=== PATIENT | male | born 1930 | race Caucasian/White ===

== ENCOUNTER → 2017-01-20 | Outpatient (CLI) | payer MEDICARE, BC ==
[2017-01-20 15:16] LABS: Blood Urea Nitrogen 40 mg/dL (9-20); Non-African American GFR(MDRD) >60 (>60 ml/min/1.73 sqM)
--- NOTE | 2017-01-20 16:52 | CT ---
EXAMINATION TYPE: CT urogram wo/w con DATE OF EXAM: 01/20/2017 4:42 PM COMPARISON: Renal ultrasound March 13, 2016. HISTORY: Pt states of hematuria x10 days ago. CT DLP: 2730 mGycm, Automated Exposure Control for Dose Reduction was Utilized. CONTRAST: CT scan of the abdomen and pelvis is performed without oral and without and with IV Contrast, patient injected with 100 mL of Omnipaque 300. Urogram protocol with Three-D reconstructed images created on independent workstation and reviewed. FINDINGS: KUB: Noncontrast images show no renal calculi bilaterally. Postcontrast images show symmetric cortica l medullary uptake and excretion from both kidneys without evidence of hydronephrosis bilaterally. Th ere is exophytic simple appearing 5.1 x 4.5 cm cyst laterally mid to lower pole level right kidney. T here is 1.4 cm simple appearing cyst upper pole level right kidney. There are additional scattered abbott bcentimeter low dense lesions throughout the right kidney too small to further characterize but felt to reflect simple cysts. No worrisome solid or cystic renal mass is evident bilaterally. There is sli ghtly asymmetric left-sided mild hydroureter without obstructing mass or neoplasm identified. No susp icious intraluminal mass in the bladder is present. LUNG BASES: Dependent atelectasis is present. Mild underlying emphysematous change is seen. Coronary artery calcification is noted. LIVER/GB: Gallbladder is contracted in appearance and thus limited in evaluation PANCREAS: No significant abnormality is seen. SPLEEN: No significant abnormality is seen. ADRENALS: No significant abnormality is seen. KIDNEYS: No significant abnormality is seen. BOWEL: Diffuse colonic diverticulosis is seen. PROSTATE/SEMINAL VESICLES: Prostate gland is heterogeneous appearance of markedly enlarged in size co nsistent with BPH, clinical correlation advised to confirm. LYMPH NODES: No greater than 1cm abdominal or pelvic lymph nodes are appreciated. OSSEOUS STRUCTURES: No significant abnormality is seen. OTHER: There are small sized fat-containing umbilical hernia. There is small sized fat-containing lef t inguinal hernia. There is atherosclerotic and ectatic abdominal aorta extending into pelvic branch vessels. Aorta is m ildly aneurysmal up to 3.2 cm in diameter on axial image 44. IMPRESSION: 1. No suspicious finding is seen to account for patient's symptoms of hematuria. Simple appearing cys ts and right kidney are redemonstrated. 2. Markedly enlarged prostate gland consistent with BPH, clinical correlation advised. 3. Prominent diffuse colonic diverticulosis without convincing CT evidence for acute diverticulitis. 4. Ectasia abdominal aorta with 3.2 cm focal aneurysm seen at infrarenal level.
== END | disposition home or self-care (01) ==
LOC: RADCTMAIN 14:40
PROVIDERS: ATTEND Internal Medicine
DX: N28.1 Cyst of kidney, acquired (principal); N40.0 Benign prostatic hyperplasia without lower urinary tract symptoms; K57.30 Diverticulosis of large intestine without perforation or abscess without bleeding; I77.811 Abdominal aortic ectasia; I72.2 Aneurysm of renal artery
CPT/HCPCS: 82565; 84520; 74178; 36415; 74400; Q9967

== ENCOUNTER → 2017-02-19 | Outpatient (CLI) | payer MEDICARE, BC ==
--- NOTE | 2017-02-19 12:25 | US ---
EXAMINATION TYPE: US duplex aorta DATE OF EXAM: 02/19/2017 10:21 AM COMPARISON: Correlation CT 01/20/2017 CLINICAL HISTORY: 86-year-old male abdominal aortic aneurysm w/o rupture I71.4. TECHNIQUE: Multiple sonographic images of the abdominal aorta were obtained. FINDINGS: EXAM MEASUREMENTS: Abdominal Aorta: Proximal: obscured by overlying bowel gas Mid: 2.4 cm. Junction of the mid and distal abdominal aorta demonstrates a 2.7 cm long segment of fusiform aneur ysm measuring up to 3.1 x 3.2 cm. Distal: 2.1cm Common iliac arteries: obscured by overlying bowel gas unable to visualize bifurcation IMPRESSION: 1. The proximal abdominal aorta, aortic bifurcation, and common iliac arteries are obscured and not e valuated. 2. However, there is a 2.7 cm long AAA at the junction of the mid and distal abdominal aorta with a c aliber of 3.2 cm.
== END | disposition home or self-care (01) ==
LOC: RADUSWWP 10:06
PROVIDERS: ATTEND Internal Medicine
DX: I71.4 Abdominal aortic aneurysm, without rupture (principal); Z13.6 Encounter for screening for cardiovascular disorders
CPT/HCPCS: 93979

== ENCOUNTER → 2017-02-25 | Outpatient (CLI) | payer MEDICARE, BC ==
--- NOTE | 2017-02-25 17:42 | US ---
EXAMINATION TYPE: US venous doppler duplex LE RT DATE OF EXAM: 02/25/2017 5:24 PM COMPARISON: 10/13/2013 CLINICAL HISTORY: RLE Thrombophlebitis I80.9. SIDE PERFORMED: Right TECHNIQUE: The lower extremity deep venous system is examined utilizing real time linear array sonog horacio with graded compression, doppler sonography and color-flow sonography. VESSELS IMAGED: External Iliac Vein (EIV) Common Femoral Vein Deep Femoral Vein Greater Saphenous Vein * Femoral Vein Popliteal Vein Proximal Calf Veins (* superficial vessels) scanned area of concern, right calf over lump, there is thrombus seen in superficial vessel, branch o f GSV. Right Leg: Negative for DVT There is a superficial vein in the calf with evidence of superficial venous thrombus. IMPRESSION: Grayscale, color doppler, spectral doppler imaging performed of the deep veins of the lo wer extremities. There is normal flow, compressibility, vascular waveforms bilaterally. No evidence of deep venous thrombosis.
== END | disposition home or self-care (01) ==
LOC: RADUSWWP 16:33
PROVIDERS: ATTEND Internal Medicine
DX: I80.9 Phlebitis and thrombophlebitis of unspecified site (principal)

== ENCOUNTER → 2017-03-04 | Outpatient (CLI) | payer MEDICARE, BC ==
--- NOTE | 2017-03-04 14:57 | XR ---
EXAMINATION TYPE: XR chest 2V DATE OF EXAM: 03/04/2017 2:43 PM COMPARISON: NONE INDICATION: Short of breath for 5 days TECHNIQUE: 2 view chest FINDINGS: The heart size is normal. The pulmonary vasculature is normal. There is hyperinflation flattening the diaphragms compatible COPD. Some plate atelectasis at the left base. There is mild blunting the right costophrenic angle. IMPRESSION: 1. Plate atelectasis left base. 2. COPD
== END | disposition home or self-care (01) ==
LOC: RADXRMAIN 14:16
PROVIDERS: ATTEND Internal Medicine
DX: J98.11 Atelectasis (principal); J44.9 Chronic obstructive pulmonary disease, unspecified
CPT/HCPCS: 71020

== ENCOUNTER → 2018-03-11 | Outpatient (CLI) | payer MEDICARE, BC ==
[2018-03-11 10:15] LABS: Basophils % (A) 1 %; Eosinophils # (A) 0.2 k/uL (0-0.7); Eosinophils % (A) 4 %; HCT 40.5 % (39.0-53.0); HGB 13.4 gm/dL (13.0-17.5); Lymphocytes # (A) 0.9 k/uL (1.0-4.8); Lymphocytes % (A) 23 %; MCH 31.6 pg (25.0-35.0); MCHC 33.1 g/dL (31.0-37.0); MCV 95.3 fL (80.0-100.0); Mean Platelet Volume 6.6; Monocytes # (A) 0.5 k/uL (0-1.0); Monocytes % (A) 13 %; Neutrophils # (A) 2.2 k/uL (1.3-7.7); Neutrophils % (A) 55 %; Platelet Count 213 k/uL (150-450); RBC 4.25 m/uL (4.30-5.90); RDW 13.9 % (11.5-15.5); WBC 3.9 k/uL (3.8-10.6)
[2018-03-11 10:32] LABS: Appearance,Urine Clear (Clear); Bilirubin,Urine Negative (Negative); Blood,Urine Small (Negative); Color,Urine Yellow; Glucose,Urine (UA) Negative (Negative); Ketones,Urine Negative (Negative); Leukocyte Esterase,Urine Trace (Negative); Mucus,Urine Rare /hpf; Nitrite,Urine Negative (Negative); Protein,Urine Trace (Negative); RBC,Urine 5 /hpf (0-5); Specific Gravity,Urine 1.015 (1.001-1.035); Urobilinogen,Urine <2.0 mg/dL (<2.0); WBC,Urine 4 /hpf (0-5)
--- NOTE | 2018-03-11 10:32 | XR ---
EXAMINATION TYPE: XR cervical spine comp DATE OF EXAM: 03/11/2018 CLINICAL HISTORY: pain COMPARISON: NONE TECHNIQUE: Frontal, lateral, oblique, swimmers, and open mouth view of the cervical spine are obtaine d. FINDINGS: The cervical spine is visualized in its entirety from C1 thru the top of T1 level. It is s atisfactory in alignment without evidence of acute fracture or dislocation. The pre-vertebral soft t issue appears within normal limits. Moderate multilevel degenerative disc space narrowing and spondyl osis. Degenerative changes of the cervical apophyseal joints moderate to severe in degree. There is f oraminal encroachment bilaterally at C3-4 through C5-6. The C1-C2 articulation is unremarkable on the open mouth view. IMPRESSION: No acute fracture or dislocation is seen in the cervical spine. Degenerative changes as noted. ICD 10 NO FRACTURE, INITIAL EVALUATION
[2018-03-11 10:56] LABS: Albumin 3.9 g/dL (3.5-5.0); Calcium 9.5 mg/dL (8.4-10.2); Magnesium 1.7 mg/dL (1.6-2.3); Phosphorus 3.8 mg/dL (2.5-4.5); Potassium 4.1 mmol/L (3.5-5.1); Total Bilirubin 0.4 mg/dL (0.2-1.3); Total Protein 6.6 g/dL (6.3-8.2); Uric Acid 6.7 mg/dL (3.5-8.5)
[2018-03-11 11:04] LABS: T4, Free (Free Thyroxine) 1.22 ng/dL (0.78-2.19)
== END | disposition home or self-care (01) ==
LOC: LABWHC1 09:11
PROVIDERS: ATTEND Internal Medicine
DX: E78.5 Hyperlipidemia, unspecified (principal); M81.0 Age-related osteoporosis without current pathological fracture; N18.1 Chronic kidney disease, stage 1; J44.9 Chronic obstructive pulmonary disease, unspecified; M47.892 Other spondylosis, cervical region
CPT/HCPCS: 36415; 72050; 80053; 80061; 81001; 82550; 83735; 84100; 84439; 84443; 84550; 85025

== ENCOUNTER → 2018-08-24 | Outpatient (CLI) | payer MEDICARE, BC ==
--- NOTE | 2018-08-24 10:40 | FL ---
ESOPHOGRAM. HISTORY: Dysphagia Esophagram was performed per the air contrast technique. The patient swallowed barium and effervesce nt crystals without difficulty or delay. Esophageal peristalsis and motility appear to be within normal limits. There is no evidence for filling defect, mass or diverticulum. There is a small sliding-type hiatal hernia. Subsequently single contrast cervical esophagram was performed which fails demonstrate evidence for a spiration penetration or mass. Mild prominence of the cricopharyngeus musculature. IMPRESSION: 1. There is a small sliding-type hiatal hernia. 2. Mild prominence of the cricopharyngeus musculature.
== END ==
LOC: RADFLWHC 09:22
PROVIDERS: ATTEND Internal Medicine
DX: K44.9 Diaphragmatic hernia without obstruction or gangrene (principal)
CPT/HCPCS: 74220

== ENCOUNTER → 2019-04-08 | Outpatient (CLI) | payer MEDICARE, BC ==
[~2019-04-08] MED LIST: REGADENOSON 0.4 MG/5 ML SYRINGE IV ONE
--- NOTE | 2019-04-08 10:53 | EST ---
EXERCISE STRESS DATE OF SERVICE: 04/08/2019 AGE: 88 SEX: Male HT: 5'5" WT: 165 pounds PROTOCOL: Lexiscan Cardiolite STAGE: DURATION OF EXERCISE: HEART RATE REST: 52 BLOOD PRESSURE REST: 134/83 MAXIMUM HEART RATE ACHIEVED: 85 MAXIMUM BLOOD PRESSURE: 139/79 85% MPHR: 100% MPHR: METS: INDICATIONS: CLINICAL INFORMATION: Baseline rhythm is sinus mechanism, rate of 52, normal axis and intervals, normal electrocardiogram. Baseline blood pressure 134/83 mmHg. Patient received injection of Lexiscan. Electrocardiograph monitoring revealed no evidence of diagnostic ischemic ST deviation. Cardiolite was injected per protocol. CONCLUSION: 1. Nondiagnostic electrocardiograph stress testing. 2. Nuclear images will be reported separately. MMODL / IJN: [id number] /
--- NOTE | 2019-04-08 12:09 | NM ---
EXAMINATION TYPE: NM stress lexiscan cardiolite DATE OF EXAM: 04/08/2019 COMPARISON: NONE HISTORY: 88-year-old male inferior transmural ME, ST elevation. TECHNIQUE: After the intravenous administration of 9.77 mCi Tc 99m Sestamibi - Cardiolite resting SP ECT images acquired 45 minutes post injection. The patient received 0.4mg Lexiscan, 24.7 mCi Tc 99m Sestamibi - Stress images obtained [address] injection FINDINGS: Review of stress and rest SPECT images demonstrates fixed decreased perfusion along the inferior and inferoseptal wall. Decreased perfusion at the cardiac apex is seen only on rest imaging suggesting at tenuation artifact. Gated analysis shows normal wall motion with an estimated left ventricular ejecti on fraction of 64 %. TID calculated at 1.05, within normal limits. IMPRESSION: 1. Large area of fixed perfusion abnormality along the inferior and inferoseptal wall. Findings could represent attenuation artifact or a large inferior wall infarct. 2. Decreased perfusion along the cardiac apex noted only on the rest imaging suggests attenuation art ifact. No suspicious reversibility seen. 3. Estimated LVEF of 64%.
== END | disposition home or self-care (01) ==
LOC: RADNMMAIN 08:02
PROVIDERS: ATTEND Internal Medicine
DX: R93.1 Abnormal findings on diagnostic imaging of heart and coronary circulation (principal); I21.19 ST elevation (STEMI) myocardial infarction involving other coronary artery of inferior wall
CPT/HCPCS: 93017; 78452; A9500; J2785

== ENCOUNTER → 2019-04-26 | Outpatient (CLI) | payer MEDICARE, BC ==
--- NOTE | 2019-04-27 09:54 | ECHOF ---
Referral Reason:I21.19 ST elevation (STEMI) myocardial infarction MEASUREMENTS -------- HEIGHT: 165.1 cm WEIGHT: 77.1 kg BP: 143/69 IVSd: 1.5 cm (0.6 - 1.1) LVIDd: 3.2 cm (3.9 - 5.3) LVPWd: 1.7 cm (0.6 - 1.1) IVSs: 1.7 cm LVIDs: 1.9 cm LVPWs: 1.9 cm LAESV Index (A-L): 28.65 ml/m Ao Diam: 2.9 cm (2.0 - 3.7) AV Cusp: 1.2 cm (1.5 - 2.6) LA Diam: 4.1 cm (2.7 - 3.8) MV EXCURSION: 14.382 mm (> 18.000) MV EF SLOPE: 25 mm/s (70 - 150) EPSS: 0.4 cm MV E Antonio: 0.66 m/s MV DecT: 263 ms MV A Antonio: 1.06 m/s MV E/A Ratio: 0.62 AR PHT: 725 ms RAP: 5.00 mmHg RVSP: 28.02 mmHg FINDINGS -------- Sinus rhythm. This was a technically adequate study. The left ventricular size is normal. There is moderate concentric left ventricular hypertrophy. T here is normal global left ventricular contractility. Overall left ventricular systolic function is normal with, an EF between 60 - 65 %. The right ventricle is normal in size. Normal LA size by volume 22+/-6 ml/m2. The right atrial size is normal. Interatrial and interventricular septum intact. Aortic valve is trileaflet and is mildly thickened. There is mild aortic valve sclerosis. There i s mild aortic regurgitation. There is no evidence of aortic stenosis. Moderate mitral annular calcification present. Mild mitral regurgitation is present. Mild tricuspid regurgitation present. There is no evidence of pulmonary hypertension. The right v entricular systolic pressure, as measured by Doppler, is 28.02mmHg. Trace/mild (physiologic) pulmonic regurgitation. The aortic root size is normal. Normal inferior vena cava with normal inspiratory collapse consistent with estimated right atrial pre ssure of 5 mmHg. There is no pericardial effusion. CONCLUSIONS -------- 1. Sinus rhythm. 2. This was a technically adequate study. 3. The left ventricular size is normal. 4. There is moderate concentric left ventricular hypertrophy. 5. There is normal global left ventricular contractility. 6. Overall left ventricular systolic function is normal with, an EF between 60 - 65 %. 7. The right ventricle is normal in size. 8. Normal LA size by volume 22+/-6 ml/m2. 9. The right atrial size is normal. 10. Interatrial and interventricular septum intact. 11. Aortic valve is trileaflet and is mildly thickened. 12. There is mild aortic valve sclerosis. 13. There is mild aortic regurgitation. 14. There is no evidence of aortic stenosis. 15. Moderate mitral annular calcification present. 16. Mild mitral regurgitation is present. 17. Mild tricuspid regurgitation present. 18. There is no evidence of pulmonary hypertension. 19. The right ventricular systolic pressure, as measured by Doppler, is 28.02mmHg. 20. Trace/mild (physiologic) pulmonic regurgitation. 21. The aortic root size is normal. 22. Normal inferior vena cava with normal inspiratory collapse consistent with estimated right atrial pressure of 5 mmHg. 23. There is no pericardial effusion. STAMP COLLECTOR: Shania Montoya RDCS
== END | disposition home or self-care (01) ==
LOC: RADECHMAIN 14:40
PROVIDERS: ATTEND Internal Medicine
DX: I08.3 Combined rheumatic disorders of mitral, aortic and tricuspid valves (principal)
CPT/HCPCS: 93306

== ENCOUNTER → 2019-12-03 | Outpatient (CLI) | payer MEDICARE, BC ==
--- NOTE | 2019-12-03 12:41 | XR ---
EXAMINATION TYPE: XR chest 2V DATE OF EXAM: 12/03/2019 COMPARISON: 03/04/2017 HISTORY: Cough and COPD TECHNIQUE: Frontal and lateral views of the chest are obtained. FINDINGS: Pulmonary hyperinflation seen with flattening of the diaphragms indicative of underlying C OPD. There is platelike basilar atelectasis at the left costophrenic angle. Trace right pleural effus ion is present. Findings are stable from the prior of 2016 and chronic. Cardiomediastinal silhouette is enlarged. Mild degenerative change of the spine. IMPRESSION: Similar findings in comparison the prior 03/04/2017 with cardiomediastinal silhouette enlargement, [employer] D, left basilar atelectasis and trace right pleural effusion.
== END | disposition home or self-care (01) ==
LOC: RADXRMAIN 12:08
PROVIDERS: ATTEND Internal Medicine
DX: R05 Cough (principal)
CPT/HCPCS: 71046

== ENCOUNTER → 2019-12-10 | Outpatient (CLI) | payer MEDICARE, BC ==
--- NOTE | 2019-12-10 10:16 | CT ---
EXAMINATION TYPE: CT chest wo con DATE OF EXAM: 12/10/2019 COMPARISON: None HISTORY: COPD CT DLP: 354.[address] of the chest was performed with lung and mediastinal window settings submitted. The la ck of contrast limits evaluation of the vascular, mediastinal and parenchymal structures including th e upper abdomen. LUNGS: Mild hyperinflation compatible with COPD.The lungs are clear and free of infiltrate. No atelec tasis. No pulmonary nodule or mass is detected. No pleural effusion. No CT evidence of interstitia l lung disease. MEDIASTINUM/GEMA: Thoracic aorta is of normal caliber with limited evaluation given lack of contrast . The heart is not enlarged. No evidence for mediastinal mass. No lymph nodes greater than 1cm. UPPER ABDOMEN: No significant abnormality is seen. OTHER: No significant other abnormality. IMPRESSION: 1. Mild hyperinflation compatible with COPD.
== END | disposition home or self-care (01) ==
LOC: RADCTMAIN 12-08 08:51
PROVIDERS: ATTEND Internal Medicine
DX: R91.8 Other nonspecific abnormal finding of lung field (principal); J44.9 Chronic obstructive pulmonary disease, unspecified
CPT/HCPCS: 36415; 71250; 82565; 84520